=== PATIENT | male | born 1955 | race Caucasian/White ===

== ENCOUNTER 2016-10-16 14:09 | Inpatient (IN) | payer OTHER ==
[2016-10-16 16:17] LABS: Hematocrit 35 % (42-52); Hemoglobin 11.6 g/dl (14.0-18.0); Mean Corpuscular HGB Conc 33 g/dl (31-36); Mean Corpuscular Hemoglobin 29 pg (27-31); Mean Corpuscular Volume 89 fL (80-94); Mean Platelet Volume 7 um3 (7.4-10.4); Red Blood Count 3.96 10^6/ul (4.0-5.4); Red Cell Distribution Width 13 % (10.5-15); White Blood Count 6.8 10^3/ul (3.5-10.8)
[2016-10-16 16:22] LABS: ALT 12 U/L (7-52); AST 16 U/L (13-39); Albumin 4.1 g/dL (3.2-5.2); Alkaline Phosphatase 62 U/L (34-104); Anion Gap 1 mmol/L (2-11); Blood Urea Nitrogen 11 mg/dL (6-24); C Reactive Protein < 1.00 mg/L (< 5.00); CO2 Carbon Dioxide 39 mmol/L (22-32); Calcium 8.9 mg/dL (8.6-10.3); Chloride 87 mmol/L (101-111); EGFR African American 252.8 (>60); EGFR Non-African American 196.6 (>60); Globulin 2.2 g/dL (2-4); Glucose 93 mg/dL (70-100); Lipase 30 U/L (11.0-82.0); Potassium 4.6 mmol/L (3.5-5.0); Sodium 127 mmol/L (133-145); Total Protein 6.3 g/dL (6.4-8.9)
[2016-10-16 16:58] LABS: Urine Bilirubin Negative (Negative); Urine Glucose Negative (Negative); Urine Nitrite Negative (Negative)
--- NOTE | 2016-10-16 17:29 | RAD ---
INDICATION: Left arm numbness COMPARISON: None TECHNIQUE: Noncontrast axial source images were acquired from the skull base to the vertex. FINDINGS: Ventricles/sulci: The ventricles and cisterns are normal in size and configuration for age. Brain parenchyma: There is no focal parenchymal finding, evidence of intracranial mass, or intracranial mass effect. Intracranial hemorrhage:None. Extra-axial spaces: There are no abnormal extra axial fluid collections or evidence of extra-axial mass. Calvarium: There is no calvarial fracture or other calvarial abnormality. Scalp: There is no evidence of scalp or extracalvarial soft tissue abnormality. Paranasal sinuses/mastoid: The paranasal sinuses and mastoid air cells are clear. Other: None. IMPRESSION: NEGATIVE EXAMINATION
[2016-10-16 17:31] LABS: Troponin I 0.01 ng/mL (<0.04)
[2016-10-16] MEDS ORDERED: Iohexol 350* (CONTRAST) 500 ML MDV IV ONE (18:25)
[2016-10-16] MEDS ORDERED: Acetaminophen TAB* 325 MG PO PRN (19:20)
[2016-10-16] MEDS ORDERED: Ondansetron INJ* 2 MG/ML VIAL IV PRN (19:20)
--- NOTE | 2016-10-16 19:21 | RAD ---
INDICATION: Left arm and leg numbness COMPARISON: CT brain October 16, 2016 TECHNIQUE: Axial source images were acquired with coronal and sagittal reconstructions. CT angiographic technique was utilized with injection of 80 mL Omnipaque 350. FINDINGS: Aortic arch: There are no significant CT angiogram abnormalities of the arch or the great vessels arising from the arch. There are minor atherosclerotic changes. Right carotid: The internal carotid artery, carotid bifurcation, extracranial portions of the internal carotid artery, carotid artery at the skull base, carotid siphon, and carotid termination appear widely patent. There are scant atherosclerotic plaque formation at the level of the bifurcation and carotid siphon.. Left carotid:The internal carotid artery, carotid bifurcation, extracranial portions of the internal carotid artery, carotid artery at the skull base, carotid siphon, and carotid termination appear widely patent. There is scant atherosclerotic plaque formation at the level of the bifurcation and carotid siphon. Right middle and anterior cerebral arteries: There are no CT angiographic abnormalities of the middle or anterior cerebral arteries. Left middle and anterior cerebral arteries: There are no CT angiographic abnormalities of the middle or anterior cerebral arteries Right vertebral: The CT angiographic appearance of the vertebral artery is normal. Left vertebral: The CT angiographic appearance of the vertebral artery is normal. Basilar artery: The basilar artery and basilar tip appear normal. Posterior cerebral arteries: The distal distribution of the right and left posterior cerebral arteries is normal. [place] of [place]: The CT angiographic appearance of the [place] is normal. Source images show no evidence of mass or adenopathy within the neck. There are interstitial fibrotic changes lung apices with multiple small bulla. There are no focal parenchymal abnormalities or abnormal areas of enhancement. There is focal mucosal thickening in the floor the right maxillary antrum IMPRESSION: NO SIGNIFICANT CT ABDOMEN ABNORMALITIES. MINOR UNDERLYING ATHEROSCLEROTIC CHANGES. NO EVIDENCE OF SIGNIFICANT STENOSIS, ANEURYSM, OR BRANCH OCCLUSION CPT II Codes: 3100F PQRS
[2016-10-16] MEDS ORDERED: Aspirin Low Dose CHEW TAB* 81 MG PO ONE (19:24)
--- NOTE | 2016-10-16 20:56 | RAD ---
INDICATION: Left-sided paresthesias COMPARISON: CT brain same date; CTA head and neck same date TECHNIQUE: sagittal T1 FLAIR, axial diffusion, axial T1 FLAIR, axial T2, axial T2 FLAIR, and SWI images were acquired. This is a limited study due to motion artifact. FINDINGS: Craniocervical junction: The craniocervical junction appears normal. Ventricles/sulci: There is mild cortical atrophy with compensatory dilatation of the CSF spaces. Brain parenchyma: There are scant T2-weighted hyperintensities in the periventricular and subcortical white matter consistent with chronic microvascular ischemia. Intracranial hemorrhage: There is no intracranial hemorrhage. Extra-axial spaces: There are no extra-axial fluid collections or masses. Orbits: There are no MR abnormalities of the orbital structures. Paranasal sinuses/mastoid: The paranasal sinuses are clear. The mastoid air cells are well aerated.. Vascular: No abnormalities are seen. Other: None IMPRESSION: MILDLY LIMITED EXAMINATION DUE TO MOTION ARTIFACT. MILD CORTICAL ATROPHY. SCANT T2-WEIGHTED HYPERINTENSITIES SYSTEM WITH MINOR CHRONIC MICROVASCULAR ISCHEMIC CHANGE.
[2016-10-16 22:47] LABS: BUN/Creatinine Ratio 21.8 (8-20); Blood Urea Nitrogen 12 mg/dL (6-24); CO2 Carbon Dioxide 39 mmol/L (22-32); Chloride 88 mmol/L (101-111); EGFR African American 195.4 (>60); EGFR Non-African American 151.9 (>60); Glucose 109 mg/dL (70-100); Potassium 4.2 mmol/L (3.5-5.0); Sodium 127 mmol/L (133-145)
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
[2016-10-16 23:26] LABS: Urine Bilirubin Negative (Negative); Urine Glucose Negative (Negative); Urine Nitrite Negative (Negative)
[2016-10-17] MEDS: Heparin VIAL(*) 5000 UNITS/ML VIAL (FIVE THOUSAND) SUBCUT SCH ×4 (00:15→21:00)
--- NOTE | 2016-10-17 01:30 | HP ---
CC: Dr. Diaz; Dr. Go * HISTORY AND PHYSICAL: DATE OF ADMISSION: 10/16/16 PRIMARY CARE PROVIDER: Dr. Diaz. ATTENDING PHYSICIAN: Dr. Ulloa * (DICTATED BY DWAINE GANDHI NP) CHIEF COMPLAINT: Left-sided weakness. HISTORY OF PRESENT ILLNESS: Mr. Bla is a 61-year-old male patient who is a former heavy smoker. He is down to about 2 to 3 cigarettes occasionally every week. He comes in today stating that he has noticed since Saturday his noticed that he has been having some difficulty with his left arm particularly raising it over his head. It has been more weak and slow to do this. There has been no elicited pain and the noticed that he has been using his cane more because his gait went off and he has been having a hard time particularly with his left side. His left leg has been a little bit weaker than his right side. She tried convincing him to come in to the ER on Saturday, but he would not. He felt he may have just injured it and felt that there were not any issues, but the has also noted that she has been having a harder time understanding him because his speech has been more slurred. There has been no report of facial droop, although the does admit that it is hard to notice his expression because he has a full facial angelo. There have been no reports of chest pain or shortness of breath. There have been no reports of fevers or chills. There were two episodes of diarrhea last week but there were concerns because he has been more and more weak and they have noticed particularly that it has been on his left side. The was concerned and finally was able to convince him to come in to the hospital to be evaluated today. There have been no reports of trouble with word finding and no reports with weakness on the right side. He did have 1 episode of vomiting last week but nothing recently. There have been no reports of abdominal pain and no reports of weight loss. The patient came in and was evaluated. Because there was concern for possible CVA and because of the weakness of one side, we were asked to evaluate for admission. PAST MEDICAL HISTORY: Significant for: 1. COPD. 2. Anxiety. 3. Depression. PAST SURGICAL HISTORY: 1. Appendectomy. 2. He has had right upper extremity ORIF. MEDICATIONS: Home medications include: 1. Ativan 0.5 mg 1 to 2 tabs t.i.d. as needed. 2. Zoloft 200 mg p.o. daily. 3. Ellipta 1 puff daily. ALLERGIES TO MEDICATIONS: Include no known drug allergies. FAMILY HISTORY: His mother and father had cancer. His father had prostate cancer. His mother's history of cancer is unknown, what type of cancer it was. SOCIAL HISTORY: He is a smoker. He was smoking up to a pack and a half a day. He smoked heavy like this for about 45 years. He does not drink anymore. He rarely has a cranberry and vodka. Surrogate decision maker is his . REVIEW OF SYSTEMS: There is no documented fever. He denied having any significant weight change. There was no double vision, although he does admit to having some visual loss on Saturday in the left eye. He said he was blurry on the left eye, this has now since resolved. There was no ear discharge. He denies having any chest pain. No shortness of breath. Denies having any abdominal pain. There was 1 episode of nausea and vomiting. There was no dysuria, no frequency. There was no loss of consciousness. No pruritus and no skin ulcerations. Review of 14 systems completed, all others negative. PHYSICAL EXAMINATION GENERAL: At this time, Mr. Bal is a 61-year-old male patient. He is chronically ill appearing. He does not appear to be in any acute distress. VITAL SIGNS: Reveal blood pressure of 112/71, pulse of 59, respirations 14, O2 sat 96%, temperature 99.9. HEENT: Head is atraumatic. Eyes: EOMs are intact. Sclerae anicteric. Throat : Oral mucosa appears to be dry. No oropharyngeal erythema. NECK: Supple. LUNGS: Clear to auscultation. He did have slight wheeze in the upper lobes. He has equal diaphragmatic expansion. HEART: Sounds S1, S2. Regular rate and rhythm. No murmurs, rubs, or gallops. ABDOMEN: Soft. It was flat, nontender. Bowel sounds present. EXTREMITIES: Pulses 2+ throughout. He has 4/5 strength on the left side, 5/5 strength on the right. NEUROLOGIC: He is awake, he is alert. His speech does sound slurred. He is oriented x3. 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 He had [id number] intact bilaterally but again little bit more uncoordinated on the left to right and same with [id number] on the left side. He did have little bit of ataxia with that. He had no obvious facial droop, again it is difficult to assess. Sensation was intact bilaterally and visual ramírez were intact as well at this point. No other gross focal deficits. SKIN: Intact. DIAGNOSTIC STUDIES/LAB DATA: Revealed WBC 6.8, RBC 3.96, hemoglobin 11.6, hematocrit 35, platelet count of 212. Sodium was 127, appears to be chronically hyponatremic; his potassium is 4.6; chloride of 89; bicarb 39; BUN 11; creatinine of 0.44; glucose of 93; lactate 0.3; calcium 8.9. Total bili 0.3 , AST 16, ALT 12, alk phos . Troponin 0.01. CRP less than 1. Albumin 4.1 , lipase of 30. Urine was obtained, it was negative. He did have a brain CT, which was negative examination. He had an EKG as well, which showed sinus bradycardia, rate of 57. No ST elevation or T-wave inversions. Old medical records were reviewed. ASSESSMENT AND PLAN: Mr. Bal is a 61-year-old male patient coming in to the ER today with complaints of weakness on the left side. In evaluation, there was concern for possible cerebrovascular accident. He will be admitted under inpatient status for: 1. Questionable cerebrovascular accident: At this point, he does have weakness on my exam on the left side. Dr. Go was consulted by the ER, but I am going to place a call to her for now. I am going to get the lipid panel and A1c in the morning, MRI, echo with bubble study. CT of the head and neck has been ordered. CT brain negative. We will get Neuro consult and neuro checks. Place him on telemetry and we will start aspirin. 2. Chronic obstructive pulmonary disease: Continue with meds as prescribed. 3. Anxiety: Continue meds as prescribed. 4. Depression: Continue meds as prescribed. 5. DVT prophylaxis: He is high risk, placed on heparin subcu. 6. Code status: Full code. 7. Fluids, electrolytes, and nutrition: He can have a heart-healthy diet pending a swallow evaluation. TIME SPENT: On the admission was approximately 60 minutes; greater than half the time spent [id number] with the patient obtaining my history and physical, other half of the time spent going over the plan of care with the patient and implementing the plan of care. I did discuss the plan of care with my attending, Dr. Ulloa; she is in agreement. DWAINE GANDHI NP [id number]/[facility] #: [id number] MALIKA
[2016-10-17] MEDS: NS 0.9% 1000 ML* 1,000 ML IV SCH ×3 (05:29→23:09)
[2016-10-17 05:39] LABS: Hematocrit 36 % (42-52); Hemoglobin 11.9 g/dl (14.0-18.0); Mean Corpuscular HGB Conc 33 g/dl (31-36); Mean Corpuscular Hemoglobin 30 pg (27-31); Mean Corpuscular Volume 90 fL (80-94); Mean Platelet Volume 7 um3 (7.4-10.4); Red Cell Distribution Width 13 % (10.5-15)
[2016-10-17 05:50] LABS: BUN/Creatinine Ratio 23.4 (8-20); EGFR African American 234.3 (>60); EGFR Non-African American 182.2 (>60); HDL Cholesterol 61.9 mg/dL; Potassium 4.1 mmol/L (3.5-5.0)
[2016-10-17] MEDS ORDERED: UMECLIDINIUM INH SCH (09:00)
[2016-10-17] MEDS ORDERED: VILANTEROL INH SCH (09:00)
[2016-10-17] MEDS: Sertraline* 100 MG TAB PO SCH (09:36)
[2016-10-17] MEDS: Aspirin Low Dose CHEW TAB* 81 MG PO SCH (09:36)
[2016-10-17] MEDS: LORazepam TAB(*) 0.5 MG PO PRN (11:30)
--- NOTE | 2016-10-17 12:42 | ECHO ---
Patient: MARILEE ALBERTO [facility] Rec#: [id number] : 1955 Date: 10/17/2016 Age: 61y Height: 167.64 cm / 66.0 in Weight: 46.72 kg / 103.0 lbs Sex: M BSA: 1.51 Room#: 434 Admit Date#: 10/16/2016 Type: Inpatient Referring: Artemio Rowe NP Reading: Rocío Townsend MD Shrink Pit Operator: Danielle Haynes RDCS CC: Fan Diaz MD Transthoracic Echocardiogram Indication: CVA BP: 118/56 HR: 60 Rhythm: NSR Findings History: Admitted with CVA symptoms. PMHx: COPD, heavy smoker,depression/anxiety. Technical Comments: The study is technically limited due to the patient's history of COPD. Completed at 1102. Left Ventricle: The left ventricular chamber size is normal. A false tendon is noted. Global left ventricular wall motion and contractility are within normal limits. The estimated ejection fraction is 50-55%. There is no consistent Doppler evidence of clinically significant diastolic dysfunction. Left Atrium: The left atrial chamber size is normal. Right Ventricle: The right ventricular cavity size is normal. The right ventricular global systolic function is normal. Right Atrium: The right atrial cavity size is normal. A patent foramen ovale is demonstrated by agitated contrast. Multiple showers of bubbles seen with injection in the ventricle, no delay, could not confirm exact source. Evidence supports shunt at the level of the atria. Aortic Valve: The aortic valve is trileaflet. There is no evidence of aortic regurgitation. There is no evidence of aortic stenosis. Mitral Valve: The mitral valve leaflets are mildly thickened. There is mild mitral regurgitation. There is no evidence of mitral stenosis. Tricuspid Valve: The tricuspid valve leaflets are normal. There is trace tricuspid regurgitation. Unable to estimate the right ventricular systolic pressure. Pulmonic Valve: The pulmonic valve appears normal. There is no evidence of pulmonic regurgitation. There is no pulmonic stenosis. Pericardium: The pericardium appears normal. Aorta: The ascending aorta is not well visualized. The aortic arch is not well visualized. There is no dilation of the aortic root. Pulmonary Artery: The main pulmonary artery is not well visualized. Venous: The inferior vena cava appears normal in size. There is a greater than 50% respiratory change in the inferior vena cava dimension. Contrast: Normal saline was used as contrast for the bubble study. Intravenous contrast was used to help determine presence of intracardiac shunting. Conclusions Global left ventricular wall motion and contractility are within normal limits. The estimated ejection fraction is 50-55%. The right ventricular global systolic function is normal. Atrial shunt seen with bubble study: multiple showers of bubbles seen with injection in the ventricle, no delay, could not confirm exact source. Evidence supports shunt at the level of the atria. All valves show good excursion. There is mild mitral regurgitation. There is trace tricuspid regurgitation. No prior echo to compare. Measurements Name Value Normal Range RVIDd (AP) 2D 2 cm (0.9 - 2.6) RVDdMajor (2D) 3 cm (2.2 - 4.4) RAd ISD 4CH 4 cm (3.4 - 4.9) RA (A4C)W 3.3 cm (2.9 - 4.6) IVSd (2D) 0.7 cm (0.6 - 1) LVPWd (2D) 0.7 cm (0.6 - 1) LVIDd (2D) 4.4 cm (3.6 - 5.4) LVIDs (2D) 3.7 cm - LV FS (2D) 15 % (25 - 45) Aortic Annulus 2 cm (1.4 - 2.6) Ao root diameter (2D) 3.3 cm (2.1 - 3.5) LA dimension (AP) 2D 2.4 cm (2.3 - 3.8) LAd ISD 4CH 2.9 cm (2.9 - 5.3) LA ISD 4CH W 3 cm (2.5 - 4.5) Name Value Normal Range LA ESV SP 4CH (A/L) 24.55 ml - LA ESV SP 4CH (MOD) 20.87 ml - Name Value Normal Range MV E-wave Vmax 0.8 m/sec - MV deceleration time 175 msec - MV A-wave Vmax 0.6 m/sec - MV E:A ratio 1.24 ratio - LV septal e' Vmax 0.1 m/sec - LV lateral e' Vmax 0.13 m/sec - LV E:e' septal ratio 8 ratio - LV E:e' lateral ratio 6.15 ratio - Name Value Normal Range AV Vmax 1.5 m/sec - AV VTI 32.9 cm - AV peak gradient 9.25 mmHg - AV mean gradient 4.23 mmHg - LVOT Vmax 1.1 m/sec - LVOT VTI 25.8 cm - LVOT peak gradient 5.13 mmHg - LVOT mean gradient 1.97 mmHg - Name Value Normal Range IVC diameter 1.6 cm - Name Value Normal Range PV Vmax 0.8 m/sec - PV peak gradient 2.67 mmHg -
[2016-10-17] MEDS ORDERED: Albuterol/Ipratropium NEB.SOL* Albuterol 2.5 MG/Ipratropium 0.5 MG 3 ML INH PRN (12:47)
--- NOTE | 2016-10-17 12:53 | PN ---
Subjective Date of Service: 10/17/16 Interval History: This is a 61 yo gentleman with COPD and depression/anxiety admitted yesterday with LUE weakness for several days with concern for possible CVA. Initial imaging including MRI of the brain is essentially normal, no evidence of CVA. Patient is still complaining of weakness and a numbness in the arm. He is unsure if his L leg is also slightly weak. Objective Active Medications: Acetaminophen (Tylenol Tab*) 650 mg PO Q4H PRN PRN Reason: FEVER/PAIN Albuterol (Ventolin Hfa Inhaler*) 2 puff INH Q6H PRN PRN Reason: SOB/WHEEZING Albuterol/Ipratropium (Duoneb (Albuterol 2.5 Mg/Ipratropium 0.5 Mg)) 1 neb INH Q4H PRN PRN Reason: SOB/WHEEZING Aspirin (Aspirin Low Dose Tab*) 81 mg PO DAILY [facility] Last Admin: 10/17/16 09:36 Dose: 81 mg Heparin Sodium (Porcine) (Heparin Vial(*)) 5,000 units SUBCUT Q8HR [facility] Last Admin: 10/17/16 05:28 Dose: 5,000 units Sodium Chloride (Ns 0.9% 1000 Ml*) 1,000 mls @ 125 mls/hr IV PER RATE [facility] Last Admin: 10/17/16 05:29 Dose: 125 mls/hr Lorazepam (Ativan Tab(*)) 0.5 mg PO QID PRN PRN Reason: ANXIETY Last Admin: 10/17/16 11:30 Dose: 0.5 mg Nf: Umeclidin/Vilant 62.5 Mdi(Nf) [Anoro 62.5/25 Ellipta Device 1 inh INH DAILY [facility] Last Admin: 10/17/16 09:42 Dose: Not Given Ondansetron HCl (Zofran Inj*) 4 mg IV Q6H PRN PRN Reason: NAUSEA Sertraline HCl (Zoloft*) 200 mg PO DAILY [facility] Last Admin: 10/17/16 09:36 Dose: 200 mg Vital Signs: Temp Pulse Resp BP Pulse Ox 98.4 F 61 16 136/69 98 10/17/16 12:20 10/17/16 12:20 10/17/16 12:20 10/17/16 12:20 10/17/16 12:20 Oxygen Devices in Use Now: Nasal Cannula Appearance: This is a chronically ill appearing gentleman in NAD accompanied by his Neck: NL Appearance and Movements; NL JVP Respiratory: Symmetrical Chest Expansion and Respiratory Effort, - - mild increased WOB with faint expiratory wheeze noted on exam Cardiovascular: NL Sounds; No Murmurs; No JVD, RRR Extremities: No Edema Skin: No Rash or Ulcers Neurological: Alert and Oriented x 3, - - CN II-XII grossly intake, LUE strength 4/5, RUE 5/5, LE 5/5 bilaterally, sensation in LUE slighly diminished Result Diagrams: 10/17/16 04:50 10/17/16 04:50 Additional Lab and Data: . Assess/Plan/Problems-Billing Assessment: This is a 61 yo male with COPD, anxiety and depression admitted with complaints of LUE weakness and possible LLE weakness. - Patient Problems (1) Left arm weakness Comment: MRI neg for infarct or hemorrhage with persistent L arm weakness and decreased sensation Consider cervical nerve root compression as the cause of his symptoms and MRI of CSpine has been ordered Noted hyponatremia, but this appears chronic and unlikely to induce a focal weakness Neurology consult is pending (2) Hyponatremia Comment: This appears to be chronic His acute symptoms are likely not related to his hyponatremia May be due to SIADH secondary to his SSRI (3) COPD (chronic obstructive pulmonary disease) Comment: No associated exacerbation (4) Anxiety and depression Comment: Stable, cont sertraline (5) Full code status (6) DVT prophylaxis Status and Disposition: Inpatient. Pending neuro consult and MRI C spine. Possible dc later today or tomorrow
[2016-10-17] MEDS ORDERED: Nicotine GUM* 2 MG PO PRN (12:57)
[2016-10-17] MEDS: Nicotine PATCH 7 MG/24 HR* PATCH TRANSDERM SCH (13:44)
--- NOTE | 2016-10-17 16:33 | RAD ---
Indication: LEFT side arm and leg weakness. Comparison: MRI brain October 16, 2016. Technique: 140[address] [place] 1.5 Valery [id number] with GEM suite. Noncontrast MRI cervical spine. Report: Significant motion artifact degrades image quality. There is only limited conspicuity of the cervical spinal cord. No gross signal abnormality, mass lesion, or cerebral hydromyelia evident. Unremarkable bone marrow signal. No fracture or subluxation evident. Unremarkable C2-C3 disc space. C3-C4: Based on correlation with October 16, 2016 CT dorsal spondylitic ridging and posterior element hypertrophic arthropathy results in mild acquired central canal stenosis. Uncinate process spurring and facet joint osteoarthritis results in moderate LEFT foraminal stenosis. C4-C5: Minimal dorsal spondylitic ridging. No suggestion of significant central canal stenosis. Uncinate process spurring and facet joint osteoarthritis results in mild bilateral foraminal stenosis. The C5-C6 through C7-T1 disc levels are unremarkable. IMPRESSION: 1. Limited exam due to motion artifact. 2. At C3-C4 there is mild acquired central canal stenosis and moderate LEFT foraminal stenosis. 3. At C4-C5 there is mild bilateral foraminal stenosis.
--- NOTE | 2016-10-17 16:39 | PN ---
Progress Note - Progress Note SOAP: Subjective: [This is a 61 yo white male with PMH of COPD with 45 year pack year smoking, anxiety, and depression admitted yesterday for concern of CVA with left upper arm weakness and difficulty with left sided gait. MRI, CT and head CTA all negative. Weakness it notably localized to the left arm and patient is unsure if any in the left leg. He also describes some intermittent paraesthesia in the left arm and some difficulty focusing and concentrating. Denies changes in vision or hearing, SOB, chest pain, dysphagia, edema, or changes in memory. Active medications: Acetaminophen (Tylenol Tab*) 650 mg PO Q4H PRN PRN Reason: FEVER/PAIN Albuterol (Ventolin Hfa Inhaler*) 2 puff INH Q6H PRN PRN Reason: SOB/WHEEZING Albuterol/Ipratropium (Duoneb (Albuterol 2.5 Mg/Ipratropium 0.5 Mg)) 1 neb INH Q4H PRN PRN Reason: SOB/WHEEZING Aspirin (Aspirin Low Dose Tab*) 81 mg PO DAILY [facility] Last Admin: 10/17/16 09:36 Dose: 81 mg Heparin Sodium (Porcine) (Heparin Vial(*)) 5,000 units SUBCUT Q8HR [facility] Last Admin: 10/17/16 13:44 Dose: 5,000 units Sodium Chloride (Ns 0.9% 1000 Ml*) 1,000 mls @ 125 mls/hr IV PER RATE [facility] Last Admin: 10/17/16 13:45 Dose: 125 mls/hr Lorazepam (Ativan Tab(*)) 0.5 mg PO QID PRN PRN Reason: ANXIETY Last Admin: 10/17/16 11:30 Dose: 0.5 mg Nicotine (Nicotine Patch 7 Mg/24 Hr*) 1 patch TRANSDERM Q24H [facility] Last Admin: 10/17/16 13:44 Dose: 1 patch Nicotine Polacrilex (Nicotine Gum*) 2 mg PO Q2H PRN PRN Reason: CRAVING Nf: Umeclidin/Vilant 62.5 Mdi(Nf) [Anoro 62.5/25 Ellipta Device 1 inh INH DAILY [facility] Last Admin: 10/17/16 09:42 Dose: Not Given Ondansetron HCl (Zofran Inj*) 4 mg IV Q6H PRN PRN Reason: NAUSEA Pharmacy Profile Note (Nicotine Patch Removal Note*) 1 note FOLLOW UP 2100 ALYSHA Sertraline HCl (Zoloft*) 200 mg PO DAILY [facility] Last Admin: 10/17/16 09:36 Dose: 200 mg Allergies: NKDA Objective: [ Vital Signs: Temp Pulse Resp BP Pulse Ox 98.4 F 61 16 136/69 98 10/17/16 12:20 10/17/16 12:20 10/17/16 13:30 10/17/16 12:20 10/17/16 12:20 General: This is a 61 yo white male that appears older than stated age that is in NAD. Lungs: Chest is symmetric and lungs are clear to auscultation. Heart: RRR with no murmurs, rubs, or gallops. Abdomen: Normactive bowel sounds abdomen is soft and nontender. Extremities: No edema and distal pulses intact. Neuro: Patient is alert and oriented X3. Sensation is intact bilaterally. EOMI with pupils reactive to direct and consensual light. Finger to nose intact. Right arm flexion, extension, abduction, adduction, and track laborer is 5/5. Left arm flexion, extension, abduction and adduction is 4/5 throughout. Romberg and pronator drift both negative. Lower extremities equal in strength. Transthoracic Echo with Bubble study: Atrial shunt seen with bubble study. Ventricular wall motion and contractility are within normal limits. Assessment/Plan: This is a 61 yo white male with PMH of COPD with 45 year pack year smoking, anxiety, and depression admitted yesterday for with left upper extremities weakness and possible left lower extremity weakness. 1) Upper extremity weakness: Given MRI results, CVA is highly unlikely given patient's localization of weakness and length of symptoms. MRI of C-Spine without contrast has been order looking for possible nerve root compression. Still pending neurology consult. It is of note that patient is hyponatremic, which appears to be a chronic issue, but given that weakness is not diffuse it is likely the etiology of patient's symptoms. The cause of the hypoantremia could be attributed to patients use of maximum dose SSRI. 2) COPD: Patient has been ordered Albuterol with neb as needed and Ellipta. No current acute exacerbation. He has been order Nicotine patch. 3) Depression/Anxiety: Continue Zoloft. 4) DVT Prophylaxis: Cont Heparin 5) Code status: Full code.
[2016-10-17] MEDS ORDERED: Nicotine Patch Removal NOTE FOLLOW UP SCH (21:00)
[2016-10-17 21:21] LABS: TSH (Thyroid Stimulating Horm) 2.59 mcIU/mL (0.34-5.60)
--- NOTE | 2016-10-17 21:39 | RAD ---
INDICATION: Smoker. COPD. Weakness. COMPARISON: Chest x-ray July 08, 2015 TECHNIQUE: PA and lateral dual-energy views were obtained. FINDINGS: Bones/Soft Tissues: There are no acute bony findings. Cardiomediastinal: The cardiomediastinal silhouette is normal. Lungs: There are no infiltrates. There are mild chronic interstitial changes. There is hyperinflation Pleura: There are no pleural effusions. Other: None IMPRESSION: HYPERINFLATION. NO ACTIVE DISEASE.
--- NOTE | 2016-10-18 04:31 | CONS ---
NEUROLOGY CONSULTATION: DATE OF CONSULT: 10/17/16 LOCATION: The patient is an inpatient in [facility]. REQUESTING PROVIDER: Artemio Rowe NP REASON FOR CONSULT: Left-sided weakness. HISTORY OF PRESENT ILLNESS: Teofilo Bal is a 61-year-old man with a history of oxygen-dependent COPD as well as anxiety and depression, who came in yesterday stating that for the past several days he has been having difficulty with his left arm and leg. He is somewhat of a vague informant and his as well is somewhat equivocal on some aspects of the history, which made pinning down the timing of symptoms and which symptoms might be new rather difficult. He noted that he was having some difficulty with raising his left arm and indicates that there may be some pain as well associated with this under his armpit on his chest wall. He feels that the left arm is slower to do things and when he was holding a cup with the left hand, it was very shaky. In addition, he has been using his cane more and when standing his left leg seems to be shakier than normal and will tremor. He also indicates that there is some numbness and tingling in the left upper extremity mostly in the hand, which he thinks involves all of the fingers, as well as up into the forearm. His and a friend of his also feel that his speech has been more difficult to understand though he does not have the clear speech at baseline either. Furthermore, he tells me that he thinks the vision in his left eye is a little blurrier when he is not wearing his glasses than it has been normally. He denies any diplopia or dysphagia or vertigo. He also notes that at times his left eyelid seems to droop and he demonstrates that he sometimes pulls it up with his fingers. He think some of these symptoms may be worse in the morning and does not give any clear fatigability to symptoms. In addition, he feels that his right side is normal and things are only affecting the left side. It is unclear whether he has had any facial involvement, but he denies any numbness or tingling in the face. It is somewhat difficult to assess the facial droop due to a full angelo. He is a long-time smoker but has cut down to 2 to 3 cigarettes daily. He reports 7 or 8 pound unintentional weight loss but over the course of a year. His appetite is excellent. He denies any abdominal pain. He did have an episode of vomiting last week but not recently. He indicates also when this began, he had some burning in his chest, which he attributes to heartburn. He was brought in to the hospital for evaluation for stroke, but thus far his workup has been negative. He still feels that his left arm is not at baseline. PAST MEDICAL HISTORY: 1. COPD, oxygen dependent. 2. Anxiety. 3. Depression. PAST SURGICAL HISTORY: Appendectomy and right upper extremity ORIF. HOME MEDICATIONS: 1. Ativan 0.5 mg, which he uses twice daily as needed. 2. Zoloft 200 mg daily. 3. Ellipta one puff daily. 4. Albuterol as needed. ALLERGIES: No known drug allergies. FAMILY HISTORY: Indicates his mother and father had cancer. He is unaware of any neurologic problems in the family. SOCIAL HISTORY: He continues to smoke though much less than he used to. He has approximately 45-year history of smoking. He has not drank beer in a long time and will occasionally have cranberry juice with vodka in it. He denies any drug use. 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 REVIEW OF SYSTEMS: As per HPI, otherwise negative. PHYSICAL EXAM: Vital Signs: Temperature is 98.4 with a T-max of 99.9 yesterday. Blood pressure 136/69, heart rate 71, oxygen saturation 98% on 3.5 L. On general examination, he is a thin, chronically ill-appearing man, who appears older than his stated age. He has relatively poor dentition. His heart is in a regular rate and rhythm with no obvious murmurs, rubs, or gallops. His lungs were notable for some wheezing. There were no obvious carotid bruits. On neurologic examination, he is fully awake, alert, and oriented. His speech is mildly dysarthric, and worse at some times than others, but mostly understandable to me. There is no aphasia. On cranial nerve testing, pupils are equal, round, and reactive from 3 to 2 mm bilaterally. Meeks are full to confrontation. He does not have any significant ptosis and there is no fatigable ptosis. Eye movements are full without diplopia. His facial musculature appears full and symmetric. Sensation is intact to light touch in V1 through V3 distribution bilaterally. Hearing is diminished to finger snapping on the right and he is not able to hear the finger snapping on the left at all. His palate elevates symmetrically and the tongue is midline. Shoulder shrug is symmetric. On motor testing, there is normal tone in the upper and lower extremities. He has diminished bulk in the first FDI on the left but otherwise his bulk is symmetric though somewhat globally reduced in the upper and lower extremities. His strength in the right side is normal. In the left upper extremity in the deltoid, there was initially some apparent weakness, which I would have graded at approximately 4 but with encouragement, he was able to produce full strength and it seemed that it was more of a delayed activation. Similarly in the left hip flexor, he did not raise the leg up as much as he did on the right, but it did feel nearly full strength. More distally in the left upper and lower extremity, there was no obvious lateralized weakness, just some apparent delay in activation. On sensory testing , he endorsed diminished sensation to temperature in the left upper extremity, but that the tuning fork felt colder in the left lower extremity than the right lower extremity. Light touch was equal in the upper and lower extremities. Vibration was reduced to approximately 10 to 12 seconds in the great toes bilaterally, and proprioception was intact bilaterally though again somewhat delayed responses in the left foot. Reflexes were 2+ in the upper and lower extremities including the ankles with mute toes with Clay's maneuver due to sensitivity of the bottom of the feet bilaterally. [id number] was without any obvious ataxia but there was some possible ataxia on [id number] in the left leg. When he stood at the bedside, he was very unsteady with eyes open with his base narrowed and appeared to be falling backward. I did not therefore have him close his eyes. He was connected to an IV drip, so I did not ambulate him further. DIAGNOSTIC STUDIES/LAB DATA: Includes a CBC notable for a low hematocrit of 36 , normal white count, and normal platelet count. CMP on admission was notable for sodium of 127, which today is 129 and a low chloride of 87, which today is 88. His CO2 is elevated at 39 and his BUN to creatinine ratio was elevated at 25 on admission. His CRP was normal. Total protein was low at 6.3. LFTs were normal. Troponins were normal. Total cholesterol was 153, triglycerides 64, LDL 80, and HDL 61.9. His hemoglobin A1c was 5.6. Lipase was 30. Urinalysis was negative for infection. CT angiogram of the head and neck was personally reviewed, and there was some atherosclerotic plaque at the bifurcation of the carotid arteries bilaterally as well as some in the cavernous portions of the ICAs, but no significant stenosis. Brain MRI was similarly personally reviewed and there was no evidence of acute infarction. There was minimal white matter changes consistent with small vessel disease. Transthoracic echocardiogram showed an ejection fraction of 50 % to 55% and the presence of atrial level shunting by bubble study. An attempt was made to obtain a C-spine MRI, but the quality was greatly degraded by motion artifact. The report indicates that at C3-4, there is mild acquired central canal stenosis and moderate left foraminal stenosis and mild bilateral foraminal stenosis at C4-5. IMPRESSION: Teofilo Bal is a 61-year-old man with a history of smoking, COPD, and depression, who presented subacutely with difficulties with his left side and possibly worsening of dysarthria. On exam, he seems to have some delayed activation on the left side, possibly some ataxia in the left lower extremity, and certainly some midline ataxia when he tries to narrow his base with his stance. Initial concern was for a subacute stroke, but MRI has not shown this to be the case. I note that he has hyponatremia, which could be medication induced and related to his SSRI but at the same time, his longstanding history of smoking is concerning and in the setting of hyponatremia with neurologic problems could potentially suggest a paraneoplastic process. I discussed with the patient and his that thus far his workup has been negative for an etiology for his neurologic deficits. This does not appear to be a peripheral process given intact reflexes and barely detectable weakness. I do note that he does have some sensory changes in the arm and leg though the sides are flipped in the upper versus lower extremity in terms of the side which has diminished sensation. I am going to order some additional lab work including a TSH and a B12. I think he should have a chest x- ray and I also discussed the possibility of lumbar puncture to look for any signs of inflammatory cells or malignant cells. The patient indicated that he needed to think about this overnight, was not sure whether he wanted to proceed with that or not. I will follow up on this tomorrow with him to see his decision and also we will discuss with Layton Mckinney who is taking care of the patient today. [id number]/[facility] #: [id number] MALIKA
[2016-10-18] MEDS: Heparin VIAL(*) 5000 UNITS/ML VIAL (FIVE THOUSAND) SUBCUT SCH (05:05)
[2016-10-18] MEDS: NS 0.9% 1000 ML* 1,000 ML IV SCH (06:58)
[2016-10-18] MEDS: Sertraline* 100 MG TAB PO SCH (08:10)
[2016-10-18] MEDS: Aspirin Low Dose CHEW TAB* 81 MG PO SCH (08:10)
[2016-10-18] MEDS ORDERED: UMECLIDINIUM INH SCH (08:54)
[2016-10-18] MEDS ORDERED: VILANTEROL INH SCH (08:54)
--- NOTE | 2016-10-18 10:23 | PN ---
Subjective Date of Service: 10/18/16 Interval History: Patient reports no change in symptoms overnight. Evaluated by neurologist, Dr Go, yesterday evening who suggested evaluation for paraneoplastic process and ordered a CXR and discussed LP which he was initially resistent to but now agreeable after discussing with his . Objective Active Medications: Acetaminophen (Tylenol Tab*) 650 mg PO Q4H PRN PRN Reason: FEVER/PAIN Albuterol (Ventolin Hfa Inhaler*) 2 puff INH Q6H PRN PRN Reason: SOB/WHEEZING Albuterol/Ipratropium (Duoneb (Albuterol 2.5 Mg/Ipratropium 0.5 Mg)) 1 neb INH Q4H PRN PRN Reason: SOB/WHEEZING Aspirin (Aspirin Low Dose Tab*) 81 mg PO DAILY [facility] Last Admin: 10/18/16 08:10 Dose: 81 mg Sodium Chloride (Ns 0.9% 1000 Ml*) 1,000 mls @ 125 mls/hr IV PER RATE [facility] Last Admin: 10/18/16 06:58 Dose: 125 mls/hr Lorazepam (Ativan Tab(*)) 0.5 mg PO QID PRN PRN Reason: ANXIETY Last Admin: 10/17/16 11:30 Dose: 0.5 mg Nicotine (Nicotine Patch 7 Mg/24 Hr*) 1 patch TRANSDERM Q24H [facility] Last Admin: 10/17/16 13:44 Dose: 1 patch Nicotine Polacrilex (Nicotine Gum*) 2 mg PO Q2H PRN PRN Reason: CRAVING Ondansetron HCl (Zofran Inj*) 4 mg IV Q6H PRN PRN Reason: NAUSEA Pharmacy Profile Note (Nicotine Patch Removal Note*) 1 note FOLLOW UP 2100 [facility] Last Admin: 10/17/16 21:01 Dose: 1 note Sertraline HCl (Zoloft*) 200 mg PO DAILY [facility] Last Admin: 10/18/16 08:10 Dose: 200 mg Umeclidinium/Vilanterol (Anoro 62.5/25 Ellipta Device (Nf)) 1 inh INH DAILY [facility] Vital Signs: Temp Pulse Resp BP Pulse Ox 97.6 F 62 16 123/50 100 10/18/16 07:31 10/18/16 09:32 10/18/16 09:32 10/18/16 07:31 10/18/16 09:32 Oxygen Devices in Use Now: Nasal Cannula Appearance: Chronically ill appearing gentleman in NAD Respiratory: Symmetrical Chest Expansion and Respiratory Effort, Clear to Auscultation Cardiovascular: NL Sounds; No Murmurs; No JVD, RRR Extremities: No Edema Skin: No Rash or Ulcers Neurological: Alert and Oriented x 3, - - mild LUE weakness and decreased sensation Result Diagrams: 10/17/16 04:50 10/17/16 04:50 Additional Lab and Data: . Diagnostic Imaging: CXR - NAD MRI brain - NAD MRI Cspine - non-diagnostic, no significant pathology CTA head - NAD Assess/Plan/Problems-Billing Assessment: This is a 61 yo male with COPD, anxiety and depression admitted with complaints of LUE weakness and possible LLE weakness. - Patient Problems (1) Left arm weakness Comment: MRI neg for infarct or hemorrhage with persistent L arm weakness and decreased sensation MRI of CSpine was completed but essentially non-diagnostic due to excessive motion artifact Noted hyponatremia, but this appears chronic and unlikely to induce a focal weakness Neurology consult is appreciated and recommended evaluation for alternate central processes and ordered vitB12, TSH, CXR and suggested LP B12, TSH and CXR unremarkable, pt is now agreeable with LP with will be completed later today Will also order CT of the chest to eval for occult malignancy that may be responsibly for a paraneoplastic syndrome (2) Hyponatremia Comment: This appears to be chronic His acute symptoms are likely not related to his hyponatremia May be due to SIADH secondary to his SSRI (3) COPD (chronic obstructive pulmonary disease) Comment: No associated exacerbation (4) Anxiety and depression Comment: Stable, cont sertraline (5) Full code status (6) DVT prophylaxis Status and Disposition: Inpatient. Pending LP and CT chest. Possible dc tomorrow
[2016-10-18] MEDS: Albuterol HFA INHALER* 8 gm MDI INH PRN ×2 (11:26→16:02)
--- NOTE | 2016-10-18 11:41 | RAD ---
INDICATION: Evaluate for lung mass COMPARISON: Chest x-ray October 17, 2016 TECHNIQUE: Noncontrast axial source images were obtained from the thoracic inlet to the hemidiaphragms. Coronal and sagittal reconstructed images were acquired. The visualized neck to include the thyroid appear normal. Chest wall: There are no acute abnormalities of the bony thorax or chest wall. Noncontrast imaging shows no definitive supraclavicular, infraclavicular, or axillary lymphadenopathy. Lungs : There are no pulmonary parenchymal masses or infiltrates. There are extensive emphysematous changes and there are chronic appearing chronic interstitial changes as well. The lungs are hyperinflated. There are no endobronchial lesions. Cardiomediastinal structures: The heart is normal in size. There is no pericardial effusion. There is no evidence of aortic aneurysm or dissection. The pulmonary vessels appear prominent perhaps related to pulmonary arterial hypertension. There is no mediastinal or hilar adenopathy. The esophagus appears normal. Pleura : There are no pleural-based masses or effusions. Other: There are no acute or significant CT findings of the visualized upper abdomen but evaluation is limited without oral or intravenous contrast and if there is concern of infradiaphragmatic pathology, contrast enhanced imaging would be indicated IMPRESSION: WITHIN THE LIMITS OF NONCONTRAST IMAGING NO ACUTE FINDINGS ARE APPRECIATED. THERE ARE ADVANCED F EMPHYSEMATOUS CHANGES WITH PRESUMED CHRONIC INTERSTITIAL CHANGE.
--- NOTE | 2016-10-18 11:56 | PN ---
Progress Note - Progress Note SOAP: Subjective: This is a 61 yo white male with PMH of COPD with 45 year pack year smoking, anxiety, admitted for left upper arm weakness with no new changes. Initial concern was for CVA with negative MRI and CT. Neurology evaluated patient yesterday with Dr. Go who expressed concern for possible paraneoplastic syndrome and order CXR and possible lumbar puncture. In speaking with patient today, he was on the fence about undergoing LP. A CT scan without contrast was order to further investigate possible pulmonary etiology. Acetaminophen (Tylenol Tab*) 650 mg PO Q4H PRN PRN Reason: FEVER/PAIN Albuterol (Ventolin Hfa Inhaler*) 2 puff INH Q6H PRN PRN Reason: SOB/WHEEZING Last Admin: 10/18/16 11:26 Dose: 2 puff Albuterol/Ipratropium (Duoneb (Albuterol 2.5 Mg/Ipratropium 0.5 Mg)) 1 neb INH Q4H PRN PRN Reason: SOB/WHEEZING Aspirin (Aspirin Low Dose Tab*) 81 mg PO DAILY [facility] Last Admin: 10/18/16 08:10 Dose: 81 mg Lorazepam (Ativan Tab(*)) 0.5 mg PO QID PRN PRN Reason: ANXIETY Last Admin: 10/17/16 11:30 Dose: 0.5 mg Nicotine (Nicotine Patch 7 Mg/24 Hr*) 1 patch TRANSDERM Q24H [facility] Last Admin: 10/17/16 13:44 Dose: 1 patch Nicotine Polacrilex (Nicotine Gum*) 2 mg PO Q2H PRN PRN Reason: CRAVING Ondansetron HCl (Zofran Inj*) 4 mg IV Q6H PRN PRN Reason: NAUSEA Pharmacy Profile Note (Nicotine Patch Removal Note*) 1 note FOLLOW UP 2100 [facility] Last Admin: 10/17/16 21:01 Dose: 1 note Sertraline HCl (Zoloft*) 200 mg PO DAILY [facility] Last Admin: 10/18/16 08:10 Dose: 200 mg Umeclidinium/Vilanterol (Anoro 62.5/25 Ellipta Device (Nf)) 1 inh INH DAILY [facility] Last Admin: 10/18/16 10:22 Dose: Not Given Allergies Allergy/AdvReac Type Severity Reaction Status Date / Time No Known Allergies Allergy Verified 10/16/16 14:27 Objective: Vital Signs: Temp Pulse Resp BP Pulse Ox 97.6 F 62 16 123/50 100 10/18/16 07:31 10/18/16 09:32 10/18/16 09:32 10/18/16 07:31 10/18/16 09:32 General: This is a 61 yo white male that appears older than stated age that is in NAD. Lungs: Chest is symmetric and lungs are clear to auscultation. Heart: RRR with no murmurs, rubs, or gallops. Abdomen: Normactive bowel sounds abdomen is soft and nontender. Extremities: No edema and distal pulses intact. Neuro: Patient is alert and oriented X3. Sensation is intact bilaterally. Right arm flexion, extension, abduction, adduction, and cloth tearer is 5/5. Left arm flexion , extension, abduction and adduction is 4/5 throughout. Romberg and pronator drift both negative. Lower extremities equal in strength. Chest noncontrast CT: No acute findings with advance emphysemic changes and chronic interstitial change. Transthoracic Echo with Bubble study: Atrial shunt seen with bubble study. Ventricular wall motion and contractility are within normal limits. MRI C-Spine: Due to motion artifact non diagnostic. MRI Brain: No acute disease. CTA: No acute disease. CXR: No acute disease. Assessment/Plan: This is a 61 yo white male with PMH of COPD with 45 year pack year smoking, anxiety, and depression admitted yesterday for with left upper extremities weakness and possible left lower extremity weakness. 1) Upper extremity weakness: Given MRI results, CVA is highly unlikely given patient's localization of weakness and length of symptoms. MRI of C-Spine without contrast has been order looking for possible nerve root compression and is non-diagnostic due to motion artifact. Patient is chronically hyponatremic and is more likely to cause diffuse weakness and not localized. After neurology consult, there is concern of possible paraneoplastic syndrome or alternate neurological process and lumbar puncture is recommended given patient's consent. 2) Hyponatremia: It is of note that patient is hyponatremic, which appears to be a chronic issue, but given that weakness is not diffuse it is likely the etiology of patient's symptoms. The cause of the hyponatremia could be attributed to patients use of maximum dose SSRI. 2) COPD: Patient has been ordered Albuterol with neb as needed and Ellipta. No current acute exacerbation. He has been order Nicotine patch. 3) Depression/Anxiety: Continue Zoloft. 4) DVT Prophylaxis: Stop Heparin as patient needs 12 hours without anticoagulation for LP. 5) Code status: Full code.
[2016-10-18] MEDS: Nicotine PATCH 7 MG/24 HR* PATCH TRANSDERM SCH (12:28)
[2016-10-18 14:53] LABS: CSF Glucose 77 mg/dL (40-70)
[2016-10-18 15:27] LABS: Body Fluid Appearance Clear
[2016-10-18 15:28] LABS: BF RBC Count #1 0; BF RBC Count #2 0; BF WBC Count #1 1; BF WBC Count #2 1; Body Fluid WBC 1 /mcL; RBC counts within 6%? Yes; WBC counts within 15%? Yes
[2016-10-18 15:47] VITALS: BP 113/56
[2016-10-18 15:48] LABS: Body Fluid Total Cells Counted 1
[2016-10-18] MEDS: LORazepam TAB(*) 0.5 MG PO PRN (17:43)
--- NOTE | 2016-10-19 13:44 | DS ---
CC: Dr. Diaz; Dr. Go * DISCHARGE SUMMARY: DATE OF ADMISSION: 10/16/16 DATE OF DISCHARGE: 10/18/16 PRIMARY CARE PROVIDER: Dr. Diaz. CONSULTING NEUROLOGIST: Dr. Go. DISCHARGING PROVIDER: [place] Cooley SUPERVISING PHYSICIAN: Josie Ulloa MD* (DICTATED BY [place] COOLEY) PRIMARY DISCHARGE DIAGNOSES: 1. Left-sided weakness, most traumatic in the left upper extremity of unclear etiology, but no acute cerebrovascular accident. 2. Hyponatremia, which is likely chronic. SECONDARY DISCHARGE DIAGNOSES: 1. Chronic obstructive pulmonary disease without acute exacerbation. 2. Chronic respiratory failure secondary to chronic obstructive pulmonary disease, requiring approximately 3 L of supplemental oxygen via nasal cannula. 3. Anxiety and depression, which is stable. DISCHARGE MEDICATIONS: 1. Albuterol 2 puffs inhaled q.6 hours as needed for shortness of breath. 2. Lorazepam 0.5 mg p.o. 4 times a day as needed for anxiety. 3. Zoloft 200 mg p.o. daily. 4. Breo/Anoro 62.5/25 one puff daily. Medication changes: None. HOSPITAL IMAGIN. CT of the brain shows no acute process. 2. CTA of the head shows no significant stenosis, aneurysm or branch occlusions. 3. MRI of the brain shows mild cortical atrophy with minor chronic microvascular ischemic changes, but nothing acute. 4. MRI of the cervical spine is essentially nondiagnostic due to severe motion artifact, but read as mild central canal stenosis at C3-4 and C4-5 mild bilateral foraminal stenosis, then moderate left foraminal stenosis at C3-4. 5. Chest x-ray shows no acute process. 6. CT of the chest shows no acute process and specifically no masses. 7. Pathology - no malignant cells identified on CSF. 8. EKG shows normal sinus rhythm. 9. Transthoracic echocardiogram shows normal-appearing left ventricle with EF measured at 50% to 55%, normal-appearing right ventricle with an evidence of PFO by positive bubble study. No significant valvular disease. HOSPITAL COURSE: This is a 61-year-old gentleman with COPD as well as anxiety and depression, who presented to the emergency department with complaints of a left- sided weakness. The patient's symptoms had been present for several days prior to admission without significant change, but took his some time to convince him to be seen. He first noted that his left arm was weak probably about 3 days prior to admission and then noted some subtle changes in his left leg. His seems to think that he seemed to be occasionally off balance and sometimes his speech was slightly slurred, but these additional findings seemed difficult to confirm between the patient and his . The patient's initial labs upon reaching the emergency department showed hyponatremia with a sodium of 127 mmol/L. CBC was unremarkable. Initial troponin was negative and CT of the brain was negative. He was subsequently admitted to the hospital for concern of CVA. MRI of the brain did not demonstrate an infarct that would explain his symptoms. His weakness seemed to be most dramatic in the left upper extremity and for this reason, MRI of the cervical spine was performed, but there was significant motion artifact and that was difficult to interpret, but thought to be grossly normal apart from some mild degenerative changes. The patient was evaluated by neurologist, Dr. Go, who suggested further evaluation for other potential essential causes for his weakness. His vitamin B12 level was measured and normal. His TSH was measured and normal. Chest x-ray and CT scan of his chest were ordered to evaluate for a lung mass that may explain a paraneoplastic process that could be influencing his symptoms, all of these were negative. Lumbar puncture was also performed, which there are pending results for flow cytometry and paraneoplastic panel on the CSF, but cytology is negative and initial cell counts are unremarkable. There is only 1 white blood cell seen with normal glucose and total protein. The patient had no changes in his symptoms during his hospital stay. Of note, he was hyponatremic consistently, but upon further review, this seems to be chronic for him. Maybe some element of SIADH related to his high-dose SSRI use , but does not appear to be contributory to his acute presentation. DISPOSITION AND FOLLOWUP PLAN: The patient is being discharged to home where he lives with his . Exact etiology of his left-sided weakness was not discovered during his hospital stay. As mentioned above, flow cytometry as well as paraneoplastic panel on CSF are still pending at the time of discharge. Workup is otherwise benign. The patient requires followup with his primary care provider to review pending labs and followup was recommended with Dr. Go in her office at her next available appointment. TYSON DUBOSE, [place] [id number]/[facility] #: [id number] MALIKA
== END 2016-10-18 18:26 | disposition home or self-care (01) | DRG 861 ==
LOC: ED 14:09 → MEDTELE 19:18
PROVIDERS: ADMIT Internal Medicine; ATTEND Internal Medicine
PROC: 009U3ZX Drainage of Spinal Canal, Percutaneous Approach, Diagnostic (ICD-10-PCS; principal; 2016-10-18)
DX: R53.1 Weakness (principal); J96.10 Chronic respiratory failure, unspecified whether with hypoxia or hypercapnia; E22.2 Syndrome of inappropriate secretion of antidiuretic hormone; Z99.81 Dependence on supplemental oxygen; J44.9 Chronic obstructive pulmonary disease, unspecified; M48.02 Spinal stenosis, cervical region; F41.9 Anxiety disorder, unspecified; F32.9 Major depressive disorder, single episode, unspecified; R27.0 Ataxia, unspecified; F17.210 Nicotine dependence, cigarettes, uncomplicated; Z79.899 Other long term (current) drug therapy; Z80.42 Family history of malignant neoplasm of prostate; Z80.9 Family history of malignant neoplasm, unspecified
CPT/HCPCS: 36415; 70450; 70496; 70498; 70551; 71020; 71250; 72141; 80048; 80053; 80061; 81003; 82607; 82945; 83036; 83605; 83690; 83930; 83935; 84157; 84300; 84443; 84484; 85025; 86140; 86255; 88112; 88184; 88187; 88188; 89051; 93005; 93306; 94760; A9270-GY; J1644

== ENCOUNTER 2017-03-23 21:13 | Inpatient (IN) | payer OTHER ==
[2017-03-23] MEDS ORDERED: Albuterol/Ipratropium NEB.SOL* Albuterol 2.5 MG/Ipratropium 0.5 MG 3 ML INH ONE (21:30)
[2017-03-23 22:22] LABS: Hematocrit 34 % (42-52); Hemoglobin 11.1 g/dl (14.0-18.0); Mean Corpuscular HGB Conc 32 g/dl (31-36); Mean Corpuscular Hemoglobin 30 pg (27-31); Mean Corpuscular Volume 92 fL (80-94); Mean Platelet Volume 7 um3 (7.4-10.4); Red Blood Count 3.71 10^6/ul (4.0-5.4); Red Cell Distribution Width 14 % (10.5-15); White Blood Count 8.2 10^3/ul (3.5-10.8)
[2017-03-23 22:26] LABS: ALT 28 U/L (7-52); AST 24 U/L (13-39); Albumin 4.3 g/dL (3.2-5.2); Alkaline Phosphatase 70 U/L (34-104); BUN/Creatinine Ratio 36.7 (8-20); Blood Urea Nitrogen 18 mg/dL (6-24); Calcium 10.4 mg/dL (8.6-10.3); Chloride 85 mmol/L (101-111); EGFR African American 223.3 (>60); EGFR Non-African American 173.6 (>60); Globulin 2.6 g/dL (2-4); Glucose 110 mg/dL (70-100); Sodium 141 mmol/L (133-145); Total Protein 6.9 g/dL (6.4-8.9)
[2017-03-23 22:28] LABS: Troponin I 0.01 ng/mL (<0.04)
[2017-03-23 22:43] LABS: CO2 Carbon Dioxide 54 mmol/L (22-32)
[2017-03-23 23:35] LABS: FIO2 37
[2017-03-23 23:39] LABS: PCO2 Arterial 126 mmHg (35-45)
[2017-03-24 01:07] LABS: EPAP 5; FIO2 40; IPAP 12
[2017-03-24 01:13] LABS: PCO2 Arterial 111 mmHg (35-45)
[2017-03-24] MEDS ORDERED: LORazepam INJ* 2 MG/ML 1 ML VIAL ONE (01:15)
--- NOTE | 2017-03-24 03:57 | HP ---
H&P (Free Text) History and Physical: PCP: Genesis Diaz MD Date/Time: 03/23/2017 2220 CC: SOB HPI: Mr Bal is a 61YO male HX COPD continuing to smoke who was brought to [facility] via EMS for SOB beginning ~2 days ago. Upon their arrival, he was in significant respiratory distress prompting initiation of CPAP en route. Upon arrival , RT was able to wean him to 3L NC with saO2s in the low 90s after nebulizer TX. Upon my evaluation, his oxygen had been increased to 10L oxymask by ED nursing and he had become quite fatigued and confused. Oxygen was decreased back to 5L oxymask and an ABG revealed a pH of 7.3 pCO2 126 pO2 95 HCO3 48.1. BiPap was initiated and ICU admission arranged for NIPPV protocol with 1H post-BiPap initiation gas improving to pH 7.36 pCO2 111, PO2 85, HCO3 49.5. Mr Bal's was present and able to inform that he had developed a chest cold ~2 days ago associated with scant clear to cream colored sputum, progressive fatigue & SOB, poor sleep, and poor PO intake. He had not complained of F/C, sweats, N/V, diarrhea, chest pain, palpitations, light- headedness, or other issues. PMedHx COPD depression anxiety Ambulatory Orders Albuterol HFA INHALER* [Ventolin HFA Inhaler*] 2 puff INH Q6H PRN 07/08/15 LORazepam TAB(*) [Ativan 0.5 MG TAB (*)] 0.5 mg PO QID PRN 10/16/16 Sertraline* [Zoloft*] 200 mg PO DAILY 10/16/16 Umeclidin/Vilant 62.5 MDI(NF) [ANORO 62.5/25 Ellipta DEVICE (NF)] 1 inh INH DAILY 10/16/16 Allergies No Known Allergies Allergy (Verified 03/23/17 22:12) SocHx: currently smoking ~1/4PPD w/ >90PYHX, rare alcohol, no recreational drugs ; lives with his ; full code status FamHx: positive for prostate CA, other cancer ROS: as above, otherwise reviewed and all were negative vitals: Vital Signs Temp 37.4 C 03/24/17 03:51 Pulse 68 03/24/17 03:00 Resp 15 03/24/17 03:00 BP 147/87 03/24/17 03:00 Pulse Ox 93 03/24/17 03:00 Intake & Output 03/23/17 03/23/17 03/24/17 11:59 23:59 11:59 Output Total 150 Balance -150 Weight 47.174 kg 46.6 kg Output: Urine 150 Constitutional: NAD, normally developed, cachectic white male appearing acutely and chronically ill HEENM: atraumatic; sclera/conjunctiva: anicteric/mildly injected OU; hearing: unable to reliable assess; oropharynx: clear, mucosa tacky Neck: soft tissue: no nuchal rigidity; thyroid: normal Pulmonary: scant curiel-expiratory wheeze B with markedly prolonged expiratory phase, poor aeration, no accessory muscle use, normal percussion, no fremitus CV: RR/RR, normal S1S2, no carotid bruit, no jugular venous distention, 2+ B DP/ PT, no edema Abdominal: soft, non-distended, non-tender, no rebound/guarding/rigidity, normoactive bowel sounds, no hepatosplenomegaly or masses, no costovertebral angle tenderness Musculoskeletal: general: grossly intact, no palpable tenderness Integumental: no rash or open wounds noted to exposed skin Psychiatric orientation: somnolent, GCS 12, oriented to PP not TS affect: somnolent mood: acquiescent eye contact: poor content: unreliable responses: markedly slowed, incoherent, &/or inappropriate insight: poor Testing: Lab Results 03/23/17 03/23/17 03/23/17 Range/Units 21:23 21:23 21:23 WBC 8.2 (3.5-10.8) 10^3/ul RBC 3.71 L (4.0-5.4) 10^6/ul Hgb 11.1 L (14.0-18.0) g/dl Hct 34 L (42-52) % MCV 92 (80-94) fL MCH 30 (27-31) pg MCHC 32 (31-36) g/dl RDW 14 (10.5-15) % Plt Count 173 (150-450) 10^3/ul MPV 7 L (7.4-10.4) um3 Neut % (Auto) 76.8 (38-83) % Lymph % (Auto) 13.7 L (25-47) % Rains % (Auto) 9.1 H (1-9) % Eos % (Auto) 0.2 (0-6) % Baso % (Auto) 0.2 (0-2) % Absolute Neuts (auto) 6.3 (1.5-7.7) 10^3/ul Absolute Lymphs (auto) 1.1 (1.0-4.8) 10^3/ul Absolute Monos (auto) 0.7 (0-0.8) 10^3/ul Absolute Eos (auto) 0 (0-0.6) 10^3/ul Absolute Basos (auto) 0 (0-0.2) 10^3/ul Absolute Nucleated RBC 0 10^3/ul Nucleated RBC % 0 Patient Temperature ABG pH (7.35-7.45) ABG pH (Temp Correct) ABG pCO2 (35-45) mmHg ABG pCO2 (Temp Corrct ABG pO2 (80-100) mmHg ABG pO2 (Temp Correct ABG HCO3 (19-31) mmol/L ABG O2 Saturation (95-98) % ABG Base Excess (-2.0-2.0) Respiration Rate O2 Delivery Device Ventilator Type Vent Mode FiO2 Inspiratory Time PEEP Pressure Support Pressure Control EPAP IPAP BiPAP Sodium 141 (133-145) mmol/L Potassium 4.0 (3.5-5.0) mmol/L Chloride 85 L (101-111) mmol/L Carbon Dioxide 54 H* (22-32) mmol/L Anion Gap Not Reportable BUN 18 (6-24) mg/dL Creatinine 0.49 L (0.67-1.17) mg/dL Est GFR ( Amer) 223.3 (>60) Est GFR (Non-Af Amer) 173.6 (>60) BUN/Creatinine Ratio 36.7 H (8-20) Glucose 110 H (70-100) mg/dL Lactic Acid 0.8 (0.5-2.0) mmol/L Calcium 10.4 H (8.6-10.3) mg/dL Total Bilirubin 0.40 (0.2-1.0) mg/dL AST 24 (13-39) U/L ALT 28 (7-52) U/L Alkaline Phosphatase 70 (34-104) U/L Troponin I 0.01 (<0.04) ng/mL Total Protein 6.9 (6.4-8.9) g/dL Albumin 4.3 (3.2-5.2) g/dL Globulin 2.6 (2-4) g/dL Albumin/Globulin Ratio 1.7 (1-3) 03/23/17 03/24/17 Range/Units 23:27 00:50 WBC (3.5-10.8) 10^3/ul RBC (4.0-5.4) 10^6/ul Hgb (14.0-18.0) g/dl Hct (42-52) % MCV (80-94) fL MCH (27-31) pg MCHC (31-36) g/dl RDW (10.5-15) % Plt Count (150-450) 10^3/ul MPV (7.4-10.4) um3 Neut % (Auto) (38-83) % Lymph % (Auto) (25-47) % Rains % (Auto) (1-9) % Eos % (Auto) (0-6) % Baso % (Auto) (0-2) % Absolute Neuts (auto) (1.5-7.7) 10^3/ul Absolute Lymphs (auto) (1.0-4.8) 10^3/ul Absolute Monos (auto) (0-0.8) 10^3/ul Absolute Eos (auto) (0-0.6) 10^3/ul Absolute Basos (auto) (0-0.2) 10^3/ul Absolute Nucleated RBC 10^3/ul Nucleated RBC % Patient Temperature Not Reportable Not Reportable ABG pH 7.30 L 7.36 (7.35-7.45) ABG pH (Temp Correct) Not Reportable Not Reportable ABG pCO2 126 H* 111 H* (35-45) mmHg ABG pCO2 (Temp Corrct Not Reportable Not Reportable ABG pO2 95 82 (80-100) mmHg ABG pO2 (Temp Correct Not Reportable Not Reportable ABG HCO3 48.1 H* 49.5 H* (19-31) mmol/L ABG O2 Saturation 99.0 H 98.6 H (95-98) % ABG Base Excess 29.7 H 31.5 H (-2.0-2.0) Respiration Rate Not Reportable Not Reportable O2 Delivery Device Nasal canula bipap Ventilator Type Not Reportable Not Reportable Vent Mode Not Reportable Not Reportable FiO2 37 40 Inspiratory Time Not Reportable Not Reportable PEEP Not Reportable Not Reportable Pressure Support Not Reportable Not Reportable Pressure Control Not Reportable Not Reportable EPAP Not Reportable 5 IPAP Not Reportable 12 BiPAP Not Reportable s/t Sodium (133-145) mmol/L Potassium (3.5-5.0) mmol/L Chloride (101-111) mmol/L Carbon Dioxide (22-32) mmol/L Anion Gap BUN (6-24) mg/dL Creatinine (0.67-1.17) mg/dL Est GFR ( Amer) (>60) Est GFR (Non-Af Amer) (>60) BUN/Creatinine Ratio (8-20) Glucose (70-100) mg/dL Lactic Acid (0.5-2.0) mmol/L Calcium (8.6-10.3) mg/dL Total Bilirubin (0.2-1.0) mg/dL AST (13-39) U/L ALT (7-52) U/L Alkaline Phosphatase (34-104) U/L Troponin I (<0.04) ng/mL Total Protein (6.4-8.9) g/dL Albumin (3.2-5.2) g/dL Globulin (2-4) g/dL Albumin/Globulin Ratio (1-3) ECG, personally reviewed: NSR rate 65, no ischemia, poor R-wave progression CXR, personally reviewed: stigmata of COPD, no acute process Impression: 61M presenting with acute on chronic hypercapneic respiratory failure 2nd COPD exacerbation DIAGNOSIS & PLAN Primary acute on chronic hypercapneic respiratory failure 2nd COPD exacerbation : ICU monitoring : NIPPV protocol : NPO : albuterol nebs : mometasone/formoterol : tiotrotpium : IV methylprednisolone : guaifenesin : incentive spirometry : supportive care Secondary depression : continue sertraline anxiety : continue lorazepam Admission Rational: inpatient for acute respiratory failure & COPD exacerbation requiring ICU monitoring for management of potential terminal decompensation; inappropriate for outpatient setting DVTp: SCDs & heparin SQ Code Status: full, needs revisiting HCP:
[2017-03-24] MEDS ORDERED: LORazepam TAB(*) 0.5 MG PO PRN (04:00)
[2017-03-24] MEDS ORDERED: Nicotine Inhaler* 10 MG AMP INH PRN (04:09)
[2017-03-24] MEDS ORDERED: Albuterol 2.5 MG/3 ML NEB.SOL* (0.083%) INH PRN (04:09)
[2017-03-24] MEDS ORDERED: methylPREDNISolone 125 MG* 2 ML VIAL IV ONE (04:09)
[2017-03-24] MEDS ORDERED: Acetaminophen SUPP* 650 MG SUPP PR PRN (04:09)
[2017-03-24] MEDS ORDERED: Ondansetron INJ* 2 MG/ML VIAL IV PRN (04:09)
[2017-03-24 05:38] LABS: Hematocrit 32 % (42-52); Hemoglobin 10.5 g/dl (14.0-18.0); Mean Corpuscular HGB Conc 33 g/dl (31-36); Mean Corpuscular Hemoglobin 30 pg (27-31); Mean Corpuscular Volume 92 fL (80-94); Mean Platelet Volume 7 um3 (7.4-10.4); Red Blood Count 3.48 10^6/ul (4.0-5.4); Red Cell Distribution Width 14 % (10.5-15); White Blood Count 8.3 10^3/ul (3.5-10.8)
[2017-03-24] MEDS: NS 0.9% 1000 ML* 1,000 ML IV SCH ×3 (05:57→22:20)
[2017-03-24 06:07] LABS: Blood Urea Nitrogen 16 mg/dL (6-24); Calcium 9.8 mg/dL (8.6-10.3); Chloride 86 mmol/L (101-111); EGFR African American 274.3 (>60); EGFR Non-African American 213.3 (>60); Glucose 112 mg/dL (70-100); Potassium 3.9 mmol/L (3.5-5.0); Sodium 139 mmol/L (133-145)
[2017-03-24 06:28] LABS: CO2 Carbon Dioxide 49 mmol/L (22-32)
[2017-03-24] MEDS: hydrALAZINE IV* 20 MG/ML VIAL IV PRN ×4 (06:50→21:13)
--- NOTE | 2017-03-24 06:55 | RAD ---
INDICATION: Shortness of breath. COMPARISON: Comparison is made with a prior chest x-ray study from October 17, 2016. TECHNIQUE: A portable view of the chest was obtained. FINDINGS: Cardiac and mediastinal contours appear to be within normal limits. The lungs are hyperinflated. There is mild prominence of the residual markings which are unchanged. No focal infiltrate or pleural effusion is seen. IMPRESSION: FINDINGS CONSISTENT WITH COPD, NO EVIDENCE FOR ACUTE FINDING.
[2017-03-24] MEDS: Albuterol 2.5 MG/3 ML NEB.SOL* (0.083%) INH SCH ×3 (08:18→19:49)
[2017-03-24] MEDS: Mometasone/Formoter 200/5 MDI INH SCH ×2 (08:21→23:50)
[2017-03-24] MEDS ORDERED: hydrALAZINE IV* 20 MG/ML VIAL IV SLOW PU ONE (08:45)
[2017-03-24] MEDS ORDERED: Sertraline* 100 MG TAB PO SCH (09:00)
[2017-03-24] MEDS: guaiFENesin ER TAB 600 MG PO SCH ×2 (09:05→21:12)
[2017-03-24] MEDS: LORazepam INJ* 2 MG/ML 1 ML VIAL IV PUSH PRN (14:06)
--- NOTE | 2017-03-24 16:52 | PN ---
Subjective Date of Service: 03/24/17 Interval History: Patient admitted overnight w/ severe COPD exacerbation. Has been pulling BiPAP off repeatedly in ICU, asking to eat. He is very dyspneic at rest. Family History: Unchanged from Admission Social History: Unchanged from Admission Past Medical History: Unchanged from Admission Objective Active Medications: Acetaminophen (Tylenol Supp*) 650 mg CA Q6H PRN PRN Reason: FEVER/PAIN Albuterol (Ventolin 2.5 Mg/3 Ml Neb.Kerry*) 2.5 mg INH Q2H PRN PRN Reason: SOB/WHEEZING Albuterol (Ventolin 2.5 Mg/3 Ml Neb.Kerry*) 2.5 mg INH [id number] AWAKE COUNT INCLUDES THE [facility] Last Admin: 03/24/17 12:53 Dose: 2.5 mg Guaifenesin (Mucinex*) 1,200 mg PO BID COUNT INCLUDES THE [facility] Last Admin: 03/24/17 09:05 Dose: Not Given Heparin Sodium (Porcine) (Heparin Vial(*)) 5,000 units SUBCUT Q8HR COUNT INCLUDES THE [facility] Hydralazine HCl (Apresoline Iv*) 10 mg IV Q4H PRN PRN Reason: Systolic >170 Last Admin: 03/24/17 16:15 Dose: 10 mg Sodium Chloride (Ns 0.9% 1000 Ml*) 1,000 mls @ 125 mls/hr IV PER RATE COUNT INCLUDES THE [facility] Last Admin: 03/24/17 14:00 Dose: 125 mls/hr Lorazepam (Ativan Tab(*)) 0.5 mg PO QID PRN PRN Reason: ANXIETY Lorazepam (Ativan Inj*) 0.5 mg IV PUSH Q4H PRN PRN Reason: ANXIETY Last Admin: 03/24/17 14:06 Dose: 0.5 mg Methylprednisolone Sodium Succinate (Solu-Medrol 40 Mg) 40 mg IV Q8H COUNT INCLUDES THE [facility] Mometasone Furoate/Formoterol Fumar (Dulera 200/5 Mdi*) 2 puff INH BID COUNT INCLUDES THE [facility] Last Admin: 03/24/17 08:21 Dose: Not Given Nicotine (Nicotine Inhaler*) 10 mg INH Q2H PRN PRN Reason: CRAVING Ondansetron HCl (Zofran Inj*) 4 mg IV Q6H PRN PRN Reason: NAUSEA Sertraline HCl (Zoloft*) 200 mg PO DAILY COUNT INCLUDES THE [facility] Last Admin: 03/24/17 09:05 Dose: Not Given Vital Signs 03/24/17 03/24/17 03/24/17 12:56 13:00 13:01 Temperature Pulse Rate 81 75 79 Respiratory 15 11 12 Rate Blood Pressure 166/71 (mmHg) O2 Sat by Pulse 95 98 97 Oximetry 03/24/17 03/24/17 03/24/17 14:00 14:06 15:00 Temperature Pulse Rate 79 71 Respiratory 21 20 13 Rate Blood Pressure 163/98 163/94 (mmHg) O2 Sat by Pulse 93 92 Oximetry Oxygen Devices in Use Now: Nasal Cannula Appearance: moderate respiratory distress Eyes: No Scleral Icterus Ears/Nose/Mouth/Throat: - - poor dentition Neck: NL Appearance and Movements; NL JVP Respiratory: - - diffuse wheezing, poor air movement, very diminished throughout Cardiovascular: NL Sounds; No Murmurs; No JVD, RRR Neurological: Alert and Oriented x 3 Lines/Tubes/Other Access: Clean, Dry and Intact Peripheral IV Nutrition: - - NPO Result Diagrams: 03/24/17 05:27 03/24/17 05:27 Additional Lab and Data: Laboratory Tests 03/23/17 03/24/17 03/24/17 23:27 00:50 05:35 ABG pH 7.30 L 7.36 ABG pCO2 126 H* 111 H* ABG pO2 95 82 ABG HCO3 48.1 H* 49.5 H* Influenza A (Rapid) Negative Influenza B (Rapid) Negative Microbiology and Other Data: Microbiology 03/24/17 05:16 Influenza Types A,B Antigen (SOPHIA) - Final Nasal Specimen received for Influenza A/B Molecular testing 03/24/17 01:16 Nasal Screen MRSA (PCR)(SOPHIA) - Final Nasal Mrsa Negative Diagnostic Imaging: CXR: no infiltrate Assess/Plan/Problems-Billing Assessment: 61 year old with acute on chronic hypercapneic respiratory failure, advanced COPD - Patient Problems (1) Respiratory failure with hypercapnia Current Visit: Yes Status: Acute Priority: High Code(s): J96.92 - RESPIRATORY FAILURE, UNSPECIFIED WITH HYPERCAPNIA SNOMED Code(s): 499009506 Comment: -Patient is at the moment competent to make decisions, he wants to be full code, and would be HCP if he decompensates further. -Options for better ventilation include BiPAP (NIPV) or intubation -He agrees to comply with BiPAP. If not successful, will need ET tube. -Not responding well to IV lorazepam. Could try Precedex drip to control agitation. (2) COPD exacerbation Current Visit: Yes Status: Acute Priority: High Code(s): J44.1 - CHRONIC OBSTRUCTIVE PULMONARY DISEASE W (ACUTE) EXACERBATION SNOMED Code(s): 594192234392431 Comment: -Will continue parenteral steroid and nebulizers for bronchospasm. -Treat possible bronchitis/pneumonia w/ ceftriaxone and azithro Status and Disposition: Continue ICU monitoring due to high risk of decompensation, need for intubation
[2017-03-24] MEDS ORDERED: cefTRIAXone VIAL(*) 1,000 MG in NS 0.9% 50 ML* 50 ML IVPB SCH (17:00)
[2017-03-24] MEDS ORDERED: Azithromycin IV(*) 500 MG in NS 0.9% 250 ML* 250 ML IVPB SCH (17:30)
[2017-03-25] MEDS: LORazepam INJ* 2 MG/ML 1 ML VIAL IV PUSH PRN ×2 (00:20→04:56)
[2017-03-25] MEDS: Albuterol 2.5 MG/3 ML NEB.SOL* (0.083%) INH SCH (00:26)
[2017-03-25 00:31] LABS: EPAP 5; FIO2 35; IPAP 12
[2017-03-25 00:35] LABS: PCO2 Arterial 95 mmHg (35-45)
[2017-03-25 02:23] LABS: EPAP 7; FIO2 40; IPAP 17
[2017-03-25 02:29] LABS: PCO2 Arterial 94 mmHg (35-45)
[2017-03-25 05:33] LABS: PCO2 Arterial 110 mmHg (35-45)
[2017-03-25] MEDS ORDERED: Heparin VIAL(*) 5000 UNITS/ML VIAL (FIVE THOUSAND) SUBCUT SCH (06:00)
[2017-03-25] MEDS: NS 0.9% 1000 ML* 1,000 ML IV SCH (06:06)
[2017-03-25 06:08] LABS: Hematocrit 34 % (42-52); Hemoglobin 10.8 g/dl (14.0-18.0); Mean Corpuscular HGB Conc 32 g/dl (31-36); Mean Corpuscular Hemoglobin 29 pg (27-31); Mean Corpuscular Volume 92 fL (80-94); Mean Platelet Volume 7 um3 (7.4-10.4); Red Cell Distribution Width 14 % (10.5-15); White Blood Count 11.9 10^3/ul (3.5-10.8)
[2017-03-25 06:14] LABS: BUN/Creatinine Ratio 53.8 (8-20); Calcium 10.1 mg/dL (8.6-10.3); EGFR African American 290.6 (>60); EGFR Non-African American 225.9 (>60); Potassium 3.7 mmol/L (3.5-5.0)
[2017-03-25] MEDS ORDERED: Atropine 1% (ORAL/SL)* 15 ML BTL SL PRN (06:47)
--- NOTE | 2017-03-25 06:54 | PN ---
Progress Note - Progress Note Date of Service: 03/25/17 Note: Mr Bal has unfortunately failed his BiPap with escalating respiratory acidosis & hypercapnia. An extensive conversation was had with his /HCP essentially outlining a near zero chance of meaningful pulmonary recovery and return to his prior baseline which she relates he was not happy with and had said numerous times to her that he wished it "would just end". She states he would not want be willing to live with a tracheostomy and long-term vent care. We discussed options of continued full code treatment vs non-escalation vs comfort-only. Questions were sought and answered to her satisfaction. She decided on comfort-only with the understanding that we would stop all treatments geared towards improvement and focus only on keeping him comfortable and allowing him to pass naturally. She was informed this would include a morphine GTT to alleviate any air hunger and feelings of SOB, but that it would also suppress his drive to breath and may hasten his passing. She expressed acceptance and wished to continue with comfort-only care. A new MOLST was filled out to this effect and orders given.
[2017-03-25] MEDS ORDERED: Morphine PCA ADULT* 5 MG/ML 30 ML PCA SCH (07:00)
[2017-03-25 09:02] VITALS: BP 131/68
--- NOTE | 2017-03-25 09:20 | PN ---
Subjective Date of Service: 03/25/17 Interval History: Patient seen and examined at bedside. Pt's family is at bedside and they are ready to remove BiPAP and start morphine REED CLEANER. Pt is non-verbal at this time, but opens eyes to voice. Family History: Unchanged from Admission Social History: Unchanged from Admission Past Medical History: Unchanged from Admission Objective Active Medications: Atropine Sulfate (Atropine 1% (Oral/Sl)*) 2 drop SL Q30M PRN Reason: SIALORRHEA Morphine Sulfate (Morphine Upper Extremity Surgeon Adult* 5 Mg/Ml) 30 mls @ 0 mls/hr REED CLEANER .change Q24H ALYSHA; Per Protocol Reason: Protocol Lorazepam (Ativan Inj*) 0.5 mg IV PUSH Q4H PRN Reason: ANXIETY Ondansetron HCl (Zofran Inj*) 4 mg IV Q6H PRN Reason: NAUSEA Vital Signs 03/24/17 03/24/17 03/24/17 09:30 09:45 10:00 Temperature Pulse Rate 61 68 63 Respiratory 20 19 14 Rate Blood Pressure 143/57 170/84 154/97 (mmHg) O2 Sat by Pulse 94 94 93 Oximetry 03/24/17 03/24/17 03/24/17 10:15 10:31 11:00 Temperature Pulse Rate 72 73 81 Respiratory 16 15 13 Rate Blood Pressure 152/62 132/98 (mmHg) O2 Sat by Pulse 94 94 94 Oximetry 03/24/17 03/24/17 03/24/17 11:02 11:46 12:00 Temperature 98.3 F Pulse Rate 70 84 Respiratory 17 21 Rate Blood Pressure 147/79 (mmHg) O2 Sat by Pulse 95 92 Oximetry 03/24/17 03/24/17 03/24/17 12:56 13:00 13:01 Temperature Pulse Rate 81 75 79 Respiratory 15 11 12 Rate Blood Pressure 166/71 (mmHg) O2 Sat by Pulse 95 98 97 Oximetry 03/24/17 03/24/17 03/24/17 14:00 14:06 15:00 Temperature Pulse Rate 79 71 Respiratory 21 20 13 Rate Blood Pressure 163/98 163/94 (mmHg) O2 Sat by Pulse 93 92 Oximetry 03/24/17 03/24/17 03/24/17 15:10 16:00 16:20 Temperature 98.7 F Pulse Rate 76 76 Respiratory 14 14 Rate Blood Pressure 182/96 175/80 (mmHg) O2 Sat by Pulse 96 96 Oximetry 03/24/17 03/24/17 03/24/17 16:30 17:00 17:30 Temperature Pulse Rate 97 94 76 Respiratory 23 12 17 Rate Blood Pressure 158/92 149/117 166/89 (mmHg) O2 Sat by Pulse 96 93 90 Oximetry 03/24/17 03/24/17 03/24/17 18:00 18:01 18:31 Temperature Pulse Rate 91 89 85 Respiratory 12 20 15 Rate Blood Pressure 167/139 (mmHg) O2 Sat by Pulse 91 91 92 Oximetry 03/24/17 03/24/17 03/24/17 18:33 19:00 19:30 Temperature Pulse Rate 87 88 95 Respiratory 13 15 15 Rate Blood Pressure 157/95 152/88 152/85 (mmHg) O2 Sat by Pulse 91 90 92 Oximetry 03/24/17 03/24/17 03/24/17 19:42 19:49 19:50 Temperature 99.1 F Pulse Rate 70 Respiratory 17 17 Rate Blood Pressure (mmHg) O2 Sat by Pulse 92 Oximetry 03/24/17 03/24/17 03/24/17 20:00 20:30 21:00 Temperature Pulse Rate 89 76 70 Respiratory 20 21 15 Rate Blood Pressure 159/82 125/70 181/88 (mmHg) O2 Sat by Pulse 93 91 92 Oximetry 03/24/17 03/24/17 03/24/17 21:02 21:30 22:00 Temperature Pulse Rate 83 78 103 Respiratory 14 17 17 Rate Blood Pressure 178/86 152/64 162/76 (mmHg) O2 Sat by Pulse 92 92 93 Oximetry 03/24/17 03/24/17 03/24/17 22:31 22:34 23:00 Temperature Pulse Rate 97 81 79 Respiratory 22 13 14 Rate Blood Pressure 181/89 164/107 166/96 (mmHg) O2 Sat by Pulse 92 92 92 Oximetry 03/24/17 03/24/17 03/24/17 23:30 23:36 23:51 Temperature 98.5 F Pulse Rate 97 95 Respiratory 20 13 Rate Blood Pressure 157/80 (mmHg) O2 Sat by Pulse 91 90 Oximetry 03/25/17 03/25/17 03/25/17 00:00 00:20 00:28 Temperature Pulse Rate 98 98 Respiratory 18 15 21 Rate Blood Pressure 165/94 (mmHg) O2 Sat by Pulse 93 92 Oximetry 03/25/17 03/25/17 03/25/17 00:31 01:00 01:30 Temperature Pulse Rate 81 72 76 Respiratory 15 17 16 Rate Blood Pressure 154/85 168/90 158/76 (mmHg) O2 Sat by Pulse 93 92 94 Oximetry 03/25/17 03/25/17 03/25/17 02:00 02:30 03:00 Temperature Pulse Rate 68 67 65 Respiratory 26 16 14 Rate Blood Pressure 138/70 140/71 143/70 (mmHg) O2 Sat by Pulse 93 91 92 Oximetry 03/25/17 03/25/17 03/25/17 03:30 03:49 04:00 Temperature 97.8 F Pulse Rate 65 Respiratory 20 16 Rate Blood Pressure 147/75 180/106 (mmHg) O2 Sat by Pulse 93 Oximetry 03/25/17 03/25/17 03/25/17 04:02 04:30 04:56 Temperature Pulse Rate 91 Respiratory 13 22 18 Rate Blood Pressure 158/100 167/128 (mmHg) O2 Sat by Pulse 94 Oximetry 03/25/17 03/25/17 03/25/17 05:00 05:30 06:00 Temperature Pulse Rate 77 80 70 Respiratory 14 15 14 Rate Blood Pressure 159/83 153/81 132/65 (mmHg) O2 Sat by Pulse 95 91 87 Oximetry 03/25/17 03/25/17 03/25/17 06:30 07:00 08:00 Temperature Pulse Rate 70 Respiratory 14 20 20 Rate Blood Pressure 131/68 (mmHg) O2 Sat by Pulse 88 Oximetry Oxygen Devices in Use Now: BiPAP Appearance: NAD, laying in bed Respiratory: Symmetrical Chest Expansion and Respiratory Effort, Clear to Auscultation - , diminished Cardiovascular: NL Sounds; No Murmurs; No JVD, RRR Abdominal: NL Sounds; No Tenderness; No Distention Extremities: No Edema Skin: No Rash or Ulcers Neurological: - - Pt is lethargic and non-verbal Lines/Tubes/Other Access: Clean, Dry and Intact Guerrero - patent, Clean, Dry and Intact Peripheral IV - site benign Result Diagrams: 03/25/17 05:30 03/25/17 05:30 Additional Lab and Data: Laboratory Tests 03/23/17 03/24/17 03/24/17 23:27 00:50 05:35 ABG pH 7.30 L 7.36 ABG pCO2 126 H* 111 H* ABG pO2 95 82 ABG HCO3 48.1 H* 49.5 H* Influenza A (Rapid) Negative Influenza B (Rapid) Negative Microbiology and Other Data: Microbiology 03/24/17 05:16 Influenza Types A,B Antigen (SOPHIA) - Final Nasal Specimen received for Influenza A/B Molecular testing 03/24/17 01:16 Nasal Screen MRSA (PCR)(SOPHIA) - Final Nasal Mrsa Negative Diagnostic Imaging: CXR: no infiltrate Assess/Plan/Problems-Billing Assessment: mr. Bal is a 61 year old male with PMH significant for COPD, depression and anxiety who presented to the emergency room with complaints of shortness of breath and was found to have acute on chronic hypercapneic respiratory failure secondary to advanced COPD. - Patient Problems (1) Respiratory failure with hypercapnia Code(s): J96.92 - RESPIRATORY FAILURE, UNSPECIFIED WITH HYPERCAPNIA SNOMED Code(s): 574710250 Comment: - has decided on DNR/DNI and comfort care measure - Will remove BiPAP now (2) COPD exacerbation Code(s): J44.1 - CHRONIC OBSTRUCTIVE PULMONARY DISEASE W (ACUTE) EXACERBATION SNOMED Code(s): 987034903104655 Comment: - Now comfort care, steroids and ABX have been discontinued (3) Anxiety and depression Code(s): F41.9 - ANXIETY DISORDER, UNSPECIFIED; F32.9 - MAJOR DEPRESSIVE DISORDER, SINGLE EPISODE, UNSPECIFIED SNOMED Code(s): 506746653 Comment: - Continue lorazepam PRN (4) DVT prophylaxis Code(s): NJE5910 - SNOMED Code(s): 106831263 (5) DNR (do not resuscitate) Status and Disposition: Inpatient. Pt has continued to decline and Pt's has opted for comfort care.
[2017-03-25] MEDS ORDERED: methylPREDNISolone SOD 40 MG* 1 ML VIAL IV SCH (12:00)
--- NOTE | 2017-03-26 18:33 | DS ---
CC: Dr. Fan Diaz DISCHARGE SUMMARY: DATE OF ADMISSION: 03/23/17 DATE OF DISCHARGE: 03/25/17, . ATTENDING PHYSICIAN: Dr. Lindsay John (dictated by Ana Biswas NP). PRIMARY CARE PROVIDER: Dr. Fan Diaz. PRIMARY DIAGNOSES: 1. Acute on chronic hypercarbic respiratory failure. 2. Chronic obstructive pulmonary disease exacerbation. SECONDARY DIAGNOSES: 1. Depression. 2. Anxiety. 3. Tobacco abuse. STUDIES WHILE IN THE HOSPITAL: Chest x-ray on 03/23/17. Radiologist's impression: Findings consiste nt with COPD, no evidence for acute findings. HISTORY OF PRESENT ILLNESS/HOSPITAL COURSE: Mr. Bal is a 61-year-old male with past medical histor y significant for chronic hypercarbic respiratory failure, COPD, anxiety and depression, and tobacco abuse, who presented to the emergency room via EMS for complaints of shortness of breath. Upon EMS a rrival, the patient was found to be in a significant respiratory distress and was initiated on CPAP e n route to the emergency room. The patient was able to be weaned while in the emergency room down to 3 L of nasal cannula with oxygen saturations in the low 90s after nebulizer treatment. The hospice were asked to evaluate the patient for admission. While being evaluated in the emergency room, the p atient was noted to have increased oxygen and needed up to 10 L via OxyMask. He was noted to be quit e fatigued and confused. His oxygen was decreased to 5 L via OxyMask and he had ABGs showing a pH of 7.3, a pCO2 of 126, pO2 of 95, HCO3 of 48.1. He was initiated on the BiPAP and was admitted to the intensive care unit. While admitted in the intensive care unit, the patient had a repeat blood gases 1 hour post BiPAP initiation showing improvement with a pH of 7.36, pCO2 of 111, pO2 85, and HCO3 49 .5. The patient was also continued on IV methylprednisolone, Dulera, Spiriva, albuterol nebulizers. The patient was initially wanting to be a full code, but unfortunately failed BiPAP with escalating r espiratory acidosis and hypercapnia and extensive conversation was had with his , his healthcare proxy. It was felt that the patient would have no meaningful pulmonary recovery if he was to have CP R or be intubated. It was felt that the patient would not want to live with a tracheostomy and a christy g term vent. The patient's , Lilian, decided on comfort only measures. On the morning of March 25, the patient was taken off of his BiPAP at approximately 9:50. He had had a morphine drip start ed at 9:40. The patient had family members at bedside. He was lethargic and minimally responsive. He would open his eyes to voice. The patient was found to have no spontaneous respirations or heart beat at 12:15. This was confirmed by 2 ICU nurses. This is a summarized report of a complex medical history and hospital stay. For further details, ple ase see the entire medical record. TIME SPENT: Time for this discharge summary was approximately 10 minutes. ANA BISWAS NP [id number]/[facility] #: [id number]
== END 2017-03-25 12:15 | disposition expired | DRG 140 ==
LOC: ED 21:13 → ICU 23:37
PROVIDERS: ADMIT Hospitalist; ATTEND Hospitalist
PROC: 5A09457 Assistance with Respiratory Ventilation, 24-96 Consecutive Hours, Continuous Positive Airway Pressure (ICD-10-PCS; principal; 2017-03-23)
DX: J44.1 Chronic obstructive pulmonary disease with (acute) exacerbation (principal); J96.22 Acute and chronic respiratory failure with hypercapnia; F17.210 Nicotine dependence, cigarettes, uncomplicated; F32.9 Major depressive disorder, single episode, unspecified; F41.9 Anxiety disorder, unspecified; Z66 Do not resuscitate; Z79.899 Other long term (current) drug therapy; Z80.42 Family history of malignant neoplasm of prostate
CPT/HCPCS: 36415; 36600; 71010; 80048; 80053; 82803; 83605; 84484; 85025; 85610; 85730; 87070; 87077; 87185; 87205; 87502; 87641; 93005; 94640; 94660; 94760; A9270-GY; J0360; J0456; J0696; J1644; J2060; J2270; J2930